=== PATIENT | male | born 1970 | race Native Hawaiian/Other Pacific Islander ===

== ENCOUNTER → 2020-07-08 | Outpatient (CLI) | payer OTHER | LOC: M.NUC 06-11 13:00 | PROVIDERS: ATTEND Internal Medicine Gastroenterology | DX: R93.5 Abnormal findings on diagnostic imaging of other abdominal regions, including retroperitoneum (principal) ==

== ENCOUNTER → 2020-07-19 | Outpatient (CLI) | payer OTHER | LOC: M.LAB 09:05 | PROVIDERS: ATTEND Internal Medicine Gastroenterology | DX: Z01.812 Encounter for preprocedural laboratory examination (principal); Z20.822 Contact with and (suspected) exposure to COVID-19 ==